=== PATIENT | male | born 1980 | race African-American/Black ===

== ENCOUNTER 2018-10-24 08:14 | Observation (INO) | payer MEDICAID ==
[~2018-10-24] VITALS: Ht 177.8 cm; Wt 52.0 kg
[2018-10-24] MEDS ORDERED: LORazepam 1MG TABLET PO ONE (08:30)
[2018-10-24] MEDS ORDERED: LORazepam 1MG TABLET ONE (08:45)
[2018-10-24] MEDS ORDERED: OLANZAPINE 5 MG TABLET ONE (12:11)
[2018-10-24] MEDS ORDERED: OLANZAPINE 5 MG TABLET PO ONE (12:30)
[2018-10-24 12:46] LABS: BASOPHILS # (AUTO) 0.02 x10^3/uL (0-0.1); BASOPHILS % (AUTO) 0 % (0-1); EOSINOPHILS % (AUTO) 0 % (1-7); LYMPHOCYTES # (AUTO) 0.86 x10^3/uL (1-3.4); LYMPHOCYTES % (AUTO) 12 % (22-44); MD NO; MEAN CORPUSCULAR HEMOGLOBIN 30.5 pg (27.5-34.5); MEAN CORPUSCULAR HGB CONC 33.3 g/dL (33.2-36.2); MEAN CORPUSCULAR VOLUME 91.8 fL (81-97); MONOCYTES # (AUTO) 0.29 x10^3/uL (0.2-0.8); MONOCYTES % (AUTO) 4 % (2-9); NEUTROPHILS # (AUTO) 5.94 x10^3/uL (1.8-6.8); NEUTROPHILS % (AUTO) 84 % (42-75); PLATELET COUNT 227 x10^3/uL (130-400); RED BLOOD COUNT 5.33 x10^6/uL (4.38-5.82); RED CELL DISTRIBUTION WIDTH 14.4 % (9.4-14.8)
[2018-10-24 12:58] LABS: ALANINE AMINOTRANSFERASE 23 U/L (12-78); ALBUMIN 4.8 g/dL (3.4-5.0); ANION GAP 8 mmol/L (5-15); CALCIUM 9.8 mg/dL (8.5-10.1); CHLORIDE 102 mmol/L (98-107); CREATININE 1.14 mg/dL (0.7-1.3)
[2018-10-24 13:00] LABS: ALKALINE PHOSPHATASE 97 U/L (45-117); BILIRUBIN,TOTAL 1.3 mg/dL (0.2-1.0); TOTAL PROTEIN 9.2 g/dL (6.4-8.2)
[2018-10-24 13:06] LABS: ACETAMINOPHEN < 2 mcg/mL (10-30); SALICYLATE LEVEL < 1.7 mg/dL (2.8-20.0)
[2018-10-24 13:56] LABS: AMPHETAMINE SCREEN, URINE Negative (Negative); BARBITURATE SCREEN, URINE Negative (Negative); BENZODIAZEPINE SCREEN, URINE Negative (Negative); CANNABINOID SCREEN, URINE Positive (Negative); COCAINE SCREEN, URINE Negative (Negative); METHADONE SCREEN, URINE Negative (Negative); OPIATE SCREEN, URINE Negative (Negative)
[2018-10-24] MEDS ORDERED: LORazepam 1MG TABLET PO PRN (14:30)
[2018-10-24] MEDS ORDERED: ACETAMINOPHEN 325 MG TABLET PO PRN (14:30)
[2018-10-24] MEDS ORDERED: DOCUSATE 100 MG CAPSULE PO PRN (14:30)
[2018-10-24] MEDS: HEPARIN 5,000 UNITS/ML, 1ML SQ SCH ×2 (14:30→21:31)
[2018-10-24] MEDS ORDERED: BISACODYL 10 MG SUPP PR PRN (14:30)
[2018-10-24] MEDS ORDERED: hydrALAzine 20 MG/ML, 1ML IVPush PRN (14:30)
[2018-10-24] MEDS ORDERED: POLYETHYLENE GLYCOL 17 GM PACKET PO PRN (14:30)
[2018-10-24] MEDS ORDERED: ZIPRASIDONE 20 MG INJ IM PRN (14:30)
[2018-10-24 20:48] VITALS: BP 124/87
[2018-10-24] MEDS ORDERED: OLANZAPINE 5 MG TABLET PO SCH (21:00)
== END 2018-10-24 23:45 ==
LOC: ED 08:55 → EDIP 14:05 → 2N 20:13
PROVIDERS: ADMIT Hospitalist; ATTEND Hospitalist
DX: F29 Unspecified psychosis not due to a substance or known physiological condition (principal); F20.9 Schizophrenia, unspecified; F31.9 Bipolar disorder, unspecified; Z87.891 Personal history of nicotine dependence; Z91.14 Patient's other noncompliance with medication regimen
CPT/HCPCS: 36415; 80053; 80307; 80329; 85025; 93005; 99284; G0378; G0480

== ENCOUNTER 2020-02-22 16:38 | Emergency (ER) | payer MEDICAID ==
[~2020-02-22] VITALS: Ht 177.8 cm; Wt 75.0 kg
--- NOTE | 2020-02-22 17:22 | NUR ---
PT RESISTANT TO GETTING INTO GOWN AND GIVING STAFF HIS BELONGINGS, TAKING 20 MINUTES AND REASSURANCE HE WILL GET HIS BELONGINGS BACK AND THAT HE IS SAFE AND THAT WE ARE HERE TO HELP HIM. PT INITIALLY NONVERBAL AND SLOWLY ANSWERED QUESTIONS AND COOPERATED. PT'S BELONGINGS IN LOCKER AND ALL EQUIPMENT IN ROOM SECURED BEHIND PULL DOWN DOORS.
[2020-02-22] MEDS ORDERED: ZIPRASIDONE 20 MG INJ IM ONE (17:30)
--- NOTE | 2020-02-22 17:47 | NUR ---
REMEDIOS IN DIRECT VIEW OF PT. PT ALLOWED BLOOD DRAW AND MEDICATION IM. JHON HODGE ARRIVED AND SPOKE WITH HER IN [facility]. [phone]. CHIKA STATES HE WAS DX WITH SCHITZOPHRENIA 2 MONTHS AGO. SHE STATES THEY HAVE A 6 MONTH OLD BABY. JHON WAS GIVEN HER HIS MEDICATION TO TAKE HOME
[2020-02-22] MEDS ORDERED: QUET300T5 PO (17:50)
[2020-02-22 18:05] LABS: ALBUMIN 4.2 g/dL (3.4-5.0); ANION GAP 8 mmol/L (5-15); CALCIUM 9.5 mg/dL (8.5-10.1); CHLORIDE 103 mmol/L (98-107)
[2020-02-22 18:17] LABS: ALANINE AMINOTRANSFERASE 19 U/L (12-78); ALKALINE PHOSPHATASE 64 U/L (45-117); BILIRUBIN,TOTAL 1.1 mg/dL (0.2-1.0); CREATININE 1.02 mg/dL (0.7-1.3); SALICYLATE LEVEL 5.1 mg/dL (2.8-20.0); TOTAL PROTEIN 8.1 g/dL (6.4-8.2)
[2020-02-22 18:37] LABS: BASOPHILS # (AUTO) 0.03 x10^3/uL (0-0.1); BASOPHILS % (AUTO) 1 % (0-1); EOSINOPHILS # (AUTO) 0.04 x10^3/uL (0-0.4); EOSINOPHILS % (AUTO) 1 % (1-7); LYMPHOCYTES # (AUTO) 1.33 x10^3/uL (1-3.4); LYMPHOCYTES % (AUTO) 25 % (22-44); MD NO; MEAN CORPUSCULAR HEMOGLOBIN 31.2 pg (27.5-34.5); MEAN CORPUSCULAR HGB CONC 33.6 g/dL (33.2-36.2); MEAN CORPUSCULAR VOLUME 92.6 fL (81-97); MEAN PLATELET VOLUME 8.8 fL (7.4-10.4); MONOCYTES # (AUTO) 0.46 x10^3/uL (0.2-0.8); MONOCYTES % (AUTO) 9 % (2-9); NEUTROPHILS # (AUTO) 3.46 x10^3/uL (1.8-6.8); NEUTROPHILS % (AUTO) 65 % (42-75); PLATELET COUNT 251 x10^3/uL (130-400); RED BLOOD COUNT 4.87 x10^6/uL (4.38-5.82); RED CELL DISTRIBUTION WIDTH 14.3 % (9.4-14.8)
--- NOTE | 2020-02-22 19:06 | NUR ---
REPORT TO TRUONG TAN
--- NOTE | 2020-02-22 19:09 | NUR ---
REPORT OF PT FROM BRITNEY MCGUIRE. PT ASLEEP IN [facility] AT THIS TIME WITH SITTER OUTSIDE OF ROOM FOR DIRECT OBSERVATION OF PT. SHAUNA.
--- NOTE | 2020-02-22 21:37 | NUR ---
PT ASLEEP IN [facility] AT THIS TIME; NADN. EQUAL BILATERAL RISE AND FALL OF CHEST NOTED. PT HAS SITTER OUTSIDE OF PT ROOM FOR DIRECT OBSERVATION OF PT.
--- NOTE | 2020-02-22 22:41 | NUR ---
PT ASLEEP IN [facility] AT THIS TIME; SHAUNA. SITTER OUTSIDE OF PT ROOM FOR DIRECT OBSERVATION OF PT AT THIS TIME.
--- NOTE | 2020-02-22 23:52 | NUR ---
Henrique garibay in EDM - 02/22/20 at 2358 by OPAL PT AMBULATES WITH SLOW BUT STEADY [place] [facility] [place]. PT RESTING IN [facility] AT THIS TIME, JOMARN. PT HAS SITTER OUTSIDE OF ROOM FOR DIRECT OBSERVATION OF PT.
--- NOTE | 2020-02-22 23:58 | NUR ---
PT ASLEEP IN [facility] AT THIS TIME; NADN. SITTER OUTSIDE OF PT ROOM FOR DIRECT OBSERVATION OF PT. EQUAL, BILATERAL RISE AND FALL OF CHEST NOTED.
--- NOTE | 2020-02-23 00:24 | NUR ---
pt asleep in [facility] at this time; herbert. sitter outside of pt room for direct observation of pt.
--- NOTE | 2020-02-23 01:56 | NUR ---
pt asleep in [facility] at this time with sitter outside of room for direct observation of pt;
--- NOTE | 2020-02-23 02:10 | NUR ---
pt asleep in [facility]; herbert. sitter outside of pt room for direct observation of pt.
--- NOTE | 2020-02-23 04:14 | NUR ---
pt asleep in [facility] at this time; herbert. sitter outside of pt room for direct observation of pt.
--- NOTE | 2020-02-23 05:20 | NUR ---
PT AWAKENED FOR VS. VSS AT THIS TIME. SITTER OUTSIDE OF ROOM FOR DIRECT OBSERVATION OF PT.
--- NOTE | 2020-02-23 07:31 | NUR ---
PATIENT SLEEPING QUIETLY. WOKE HIM EASILY AND ASKED FOR URINE SAMPLE. HE STATES HE CAN NOT PEE. GOT HIM TWO GLASSES OF WATER AND TOLD HIM THAT WE NEED URINE TO COMPLETE HIS WORKUP. STATES HE WILL TRY, AND ROLLED OVER AND WENT BACK TO SLEEP. ORDERED BREAKFAST TRAY, WILL HOLD TRAY UNTIL WE GET URINE.
--- NOTE | 2020-02-23 07:55 | NUR ---
patient now wanting to leave. patient upset. asked politely for urine sample and let patient know that he is indeed on a hold at this time.
[2020-02-23] MEDS ORDERED: ZIPRASIDONE 20 MG INJ IM ONE ×2 (08:17→08:30)
--- NOTE | 2020-02-23 08:24 | NUR ---
patient began screaming out and swearing at staff, thrashing in bed and threatening to leave. called security. talked to MD. patient continued this behavior for 20 minutes. got order for adalid, and administered. sitter at bedside.
[2020-02-23] MEDS ORDERED: LORazepam 2 MG/ML, 1ML IM ONE (08:30)
--- NOTE | 2020-02-23 09:26 | NUR ---
CALLED, GAVE HER UPDATE. PATIENT IS STILL ANXIOUS AND NOT COOPERATIVE BUT IS REMAING CALM IN BED
--- NOTE | 2020-02-23 10:24 | NUR ---
PATIENT STILL REFUSING TO GIVE URINE SAMPLE. URINAL AT BEDSIDE. HE HAS COVERED HIMSELF HEAD TO TOE IN BLANKET AND IS LAYING THERE. EASILY AROUSABLE BUT NOT COOPERATIVE.
--- NOTE | 2020-02-23 11:38 | NUR ---
PATIENT IN BED, TALKING TO MENTAL HEALTH
[2020-02-23] MEDS ORDERED: QUETIAPINE 100MG TABLET ONE ×2 (12:17→21:18)
--- NOTE | 2020-02-23 13:08 | NUR ---
patient sleeping mostly. patient still has not provided urine sample and suspect he is peeing on himself, he gets very angry when asked if we can get a urine sample.
--- NOTE | 2020-02-23 14:29 | NUR ---
back from lunch, no change in patient status. he is in bed, hiding under covers and will not provide urine sample. room smells of urine, patient denying he pee'd. he gets angry when approached to assess if his gown is wet.
--- NOTE | 2020-02-23 15:10 | NUR ---
patient in bed, refuses to go pee
--- NOTE | 2020-02-23 15:12 | NUR ---
patient refusing food and refusing to offer urine sample. smells of pee
--- NOTE | 2020-02-23 15:32 | NUR ---
called, gave update. told her i would allow her to visit so long as patient remains calm, she said she would help him with urine sample
--- NOTE | 2020-02-23 16:33 | NUR ---
PATIENT MINIMALLY INTERACTIVE. HE REFUSES FOOD, REFUSES URINE SAMPLE.
--- NOTE | 2020-02-23 17:00 | NUR ---
here to visit. they are talking calmly
--- NOTE | 2020-02-23 17:09 | NUR ---
left. she states he does smell of urine but that we will not get urine from him because it is his way of "bucking" the system; she states he is never going to go for us. in bed. refusing everything.
--- NOTE | 2020-02-23 17:58 | NUR ---
went to assess if patient has pee'd in the bed. patient refused to let me assess since i'm a woman and requested a male. got fan vinson to assess and patient was reported by fan to have no urine in bed or on sheet. patient has been given water all day long and witnessed drank 5 glasses of water. will relay this information to .
--- NOTE | 2020-02-23 18:48 | NUR ---
report given to Daily. patient in bed, with sitter. refusing food/refusing urine sample.
--- NOTE | 2020-02-23 18:54 | NUR ---
patient report given to otilia
--- NOTE | 2020-02-23 19:06 | NUR ---
Report received from BRITNEY Lara. This RN to assume care. Patient aware that a urine sample is needed. Patient still refusing to provide urine.
--- NOTE | 2020-02-23 19:39 | NUR ---
Patient resting in [facility] with no complaints. Sitter outside. Room secured. Belongings in locked cabinet.
--- NOTE | 2020-02-23 20:12 | NUR ---
Patient sleeping in [place]. Respirations even and unlabored. Sitter outside. Room secured. Belongings locked in cabinet.
[2020-02-23] MEDS ORDERED: QUETIAPINE 100MG TABLET PO SCH (21:00)
--- NOTE | 2020-02-23 21:30 | NUR ---
[place] Respirations even and unlabored. Sitter outside. Room secured. Belongings locked in cabinet.
--- NOTE | 2020-02-23 22:25 | NUR ---
THROUGHPUT: PATIENT STILL NOT PROVIDING URINE. UNABLE TO PLACE
--- NOTE | 2020-02-23 23:02 | NUR ---
Patient sleeping in gurney. Respirations even and unlabored. Sitter outside. Room secured. Belongings locked in cabinet. Patient continuing to refuse to provide urine.
--- NOTE | 2020-02-24 00:13 | NUR ---
[place] Respirations even and unlabored. Sitter outside. Room secured. Belongings locked in cabinet.
--- NOTE | 2020-02-24 00:57 | NUR ---
BREAK RN: PT SLEEPING ON GURNEY, CHEST RISE AND FALL OBSERVED. SITTER OUTSIDE OF ROOM. WILL CONTINUE TO MONITOR.
--- NOTE | 2020-02-24 01:42 | NUR ---
Patient awoke requesting water stating he still cannot provide urine.
--- NOTE | 2020-02-24 03:07 | NUR ---
[place] Respirations even and unlabored. Sitter outside. Room secured. Belongings locked in cabinet.
--- NOTE | 2020-02-24 04:44 | NUR ---
Patient sleeping in [place] Respirations even and unlabored. Sitter outside. Room secured. Belongings locked in cabinet.
--- NOTE | 2020-02-24 05:40 | NUR ---
[place] Respirations even and unlabored. Sitter outside. Room secured. Belongings locked in cabinet.
--- NOTE | 2020-02-24 06:42 | NUR ---
Patient sleeping in gurney. Respirations even and unlabored. Sitter outside. Room secured. Belongings locked in cabinet. Patient continuing to refuse to provide urine.
--- NOTE | 2020-02-24 06:55 | NUR ---
Report to BRITNEY Currie.
--- NOTE | 2020-02-24 07:34 | NUR ---
REPORT FROM RN. PT RESTING. SITTER PRESENT.
[2020-02-24 08:00] VITALS: BP 133/80
--- NOTE | 2020-02-24 08:18 | NUR ---
given meal tray and water. pt denies needing to void
--- NOTE | 2020-02-24 08:33 | NUR ---
CALLED FOR UPDATE. PT AWARE AND DID NOT WANT RN TO GIVE INFO. STATES "I DONT BELIEVE SHE IS ON THE PHONE"
--- NOTE | 2020-02-24 09:36 | NUR ---
pt refusing to provide urine. becomees argumentive and defensive when asked. sitter present.
--- NOTE | 2020-02-24 10:30 | NUR ---
PT GIVEN WATER AND SNACKS. PT REFUSING TO VOID. SITTER PRESENT
--- NOTE | 2020-02-24 11:30 | NUR ---
pt did not eat much of tray. blanket over pt head, not answering questions. sitter present
--- NOTE | 2020-02-24 12:30 | NUR ---
pt given meal tray. sitter at bedside. pt conversation minimal
--- NOTE | 2020-02-24 13:30 | NUR ---
PT HAS BLANKET OVER HEAD. MINIMAL CONVERSATION. UNCOOPERATIVE. SITTER PRESENT
--- NOTE | 2020-02-24 14:30 | NUR ---
PT STILL REFUSING TO HAVE CONVERSATION W RN ABOUT PROVIDING URINE SAMPLE. SITTER PRESENT. PT NOT IN DISTRESS.
--- NOTE | 2020-02-24 15:30 | NUR ---
pt sleeping, no needs a this time. sitter present
--- NOTE | 2020-02-24 16:09 | NUR ---
REPORT TO ANSHU
--- NOTE | 2020-02-24 16:26 | NUR ---
ALL BELONGINGS W PATIENT, TRANSFERRED TO [facility]
== END 2020-02-23 ==
LOC: ED 02-23 06:25
DX: F20.0 Paranoid schizophrenia (principal)
CPT/HCPCS: 36415; 80053; 80307; 84443; 85025; 96372; 99285; J3486

== ENCOUNTER 2020-02-24 15:37 | Inpatient (IN) | payer MEDICAID ==
[~2020-02-24] VITALS: Ht 177.8 cm; Wt 58.6 kg
[~2020-02-24 15:37] MED LIST: QUET300T5 PO
[2020-02-24] MEDS ORDERED: BISACODYL 10 MG SUPP PR PRN (16:30)
[2020-02-24] MEDS ORDERED: ACETAMINOPHEN 325 MG TABLET PO PRN (16:30)
[2020-02-24] MEDS ORDERED: DOCUSATE 100 MG CAPSULE PO PRN (16:30)
[2020-02-24] MEDS ORDERED: ONDANSETRON ODT 4 MG PO PRN (16:30)
[2020-02-24] MEDS ORDERED: POLYETHYLENE GLYCOL 17 GM PACKET PO PRN (16:30)
[2020-02-24] MEDS ORDERED: PLEASE ENTER HEIGHT AND WEIGHT MC SCH (17:00)
[2020-02-24 18:03] VITALS: BP 130/85
[2020-02-24 18:07] VITALS: BP 130/85
[2020-02-24 19:05] VITALS: BP 109/69
[2020-02-24] MEDS: QUETIAPINE 100MG TABLET PO SCH (20:50)
[2020-02-25 07:32] VITALS: BP 124/85
[2020-02-25 19:34] VITALS: BP 104/58
[2020-02-25] MEDS: QUETIAPINE 100MG TABLET PO SCH (20:17)
[2020-02-25] MEDS: LORazepam 1MG TABLET PO PRN (20:17)
[2020-02-26 07:19] VITALS: BP 133/85
[2020-02-26] MEDS: LORazepam 1MG TABLET PO PRN (09:56)
[2020-02-26] MEDS ORDERED: DIPHENHYDRAMINE 50 MG CAPSULE ONE (12:12)
[2020-02-26] MEDS ORDERED: HALOPERIDOL 5 MG TABLET ONE (12:12)
[2020-02-26] MEDS ORDERED: HALOPERIDOL 5 MG TABLET PO ONE (12:30)
[2020-02-26] MEDS ORDERED: LORazepam 1MG TABLET PO ONE (12:30)
[2020-02-26] MEDS ORDERED: DIPHENHYDRAMINE 25 MG CAPSULE PO ONE (12:30)
[2020-02-26] MEDS ORDERED: ACETAMINOPHEN 325 MG TABLET PO PRN (14:30)
[2020-02-26] MEDS ORDERED: DOCUSATE 100 MG CAPSULE PO PRN (14:30)
[2020-02-26] MEDS ORDERED: BISACODYL 10 MG SUPP PR PRN (14:30)
[2020-02-26] MEDS ORDERED: ONDANSETRON ODT 4 MG PO PRN (14:30)
[2020-02-26] MEDS ORDERED: POLYETHYLENE GLYCOL 17 GM PACKET PO PRN (14:30)
[2020-02-26] MEDS ORDERED: DIPHENHYDRAMINE 50 MG/ML, 1ML IM ONE ×2 (16:30→20:00)
[2020-02-26] MEDS ORDERED: LORazepam 2 MG/ML, 1ML IM ONE ×2 (16:30→20:00)
[2020-02-26] MEDS ORDERED: HALOPERIDOL 5 MG/ML IM PRN (16:30)
[2020-02-26 19:00] VITALS: BP 120/80
[2020-02-26] MEDS ORDERED: HALOPERIDOL 5 MG/ML IM ONE (20:00)
[2020-02-26] MEDS: QUETIAPINE 100MG TABLET PO SCH (21:26)
[2020-02-26 22:18] VITALS: BP 133/88
[2020-02-27 07:33] VITALS: BP 136/90
[2020-02-27 19:44] VITALS: BP 113/72
[2020-02-27] MEDS: QUETIAPINE 100MG TABLET PO SCH (20:55)
[2020-02-28 07:45] VITALS: BP 125/91
[2020-02-28] MEDS: QUETIAPINE 100MG TABLET PO SCH ×2 (08:27→20:22)
[2020-02-28] MEDS: LORazepam 1MG TABLET PO PRN (08:30)
[2020-02-28 19:00] VITALS: BP 101/70
[2020-02-29 07:49] VITALS: BP 108/79
[2020-02-29] MEDS: QUETIAPINE 100MG TABLET PO SCH ×2 (08:47→20:32)
[2020-02-29] MEDS ORDERED: QUET100T PO ×2 (13:46)
[2020-02-29 19:45] VITALS: BP 119/73
[2020-03-01 07:25] VITALS: BP 105/68
[2020-03-01] MEDS: QUETIAPINE 100MG TABLET PO SCH (08:29)
== END 2020-03-01 09:09 | disposition home or self-care (01) | DRG 885 ==
LOC: 2N 16:31 → 3E 02-26 13:42
PROVIDERS: ADMIT Psychiatry & Neurology Psychosomatic Medicine; ATTEND Psychiatry & Neurology Psychosomatic Medicine
DX: F25.1 Schizoaffective disorder, depressive type (principal); F12.90 Cannabis use, unspecified, uncomplicated; F31.9 Bipolar disorder, unspecified; Z91.14 Patient's other noncompliance with medication regimen; Z91.19 Patient's noncompliance with other medical treatment and regimen
CPT/HCPCS: 71045; 93005; J1200; J1630; J2060; Q0163